=== PATIENT | female | born 1950 | race Caucasian/White ===

== ENCOUNTER 2016-02-17 08:18 | Inpatient (IN) | payer OTHER ==
[~2016-02-17] VITALS: Ht 157.5 cm; Wt 86.7 kg
[~2016-02-17 08:18] MED LIST: AMBIEN10 MG PO; BABY ASPIRIN81 M1 PO; CRESTOR40 MG PO; HYDROCHLOROTHIA25 MG PO; LEVOTHROID100 MCG PO; METOPROLOL TART25 MG PO; NEXIUM40 MG PO; PLAVIX75 MG PO; TOPROL XL50 MG PO
[2016-02-17 09:14] LABS: HEMATOCRIT 39.5 % (36.0-46.0); MCH 29.8 PG (29.0-34.0); MCHC 33.2 G/DL (30.0-36.0); PLATELET COUNT 280 K/uL (156-360); RBC DIS.WIDTH-CV 13.7 % (11.8-14.6); RBC DIS.WIDTH-SD 43.7 % (39-53); RED BLOOD COUNT 4.39 M/uL (3.80-5.20); WHITE BLOOD COUNT 9.6 K/uL (4.1-10.2)
[2016-02-17 09:26] LABS: CHLORIDE 105 mEq/L (99-109); POTASSIUM 4.8 mEq/L (3.7-5.4); SODIUM 136 mEq/L (136-147)
[2016-02-17 09:28] LABS: GLUCOSE 116 mg/dL (70-99)
[2016-02-17 09:29] LABS: ANION GAP 11 MEQ/L (2-14)
[2016-02-17 09:30] LABS: TOTAL BILIRUBIN 0.4 mg/dL (0.0-1.0)
[2016-02-17 09:32] LABS: ALKALINE PHOSPHATASE 69 IU/L (3-129); GFR ESTIMATE (CALCULATED) > 59 mL/min/
[2016-02-17 09:33] LABS: UREA NITROGEN (BUN) 19 mg/dL (9-23)
[2016-02-17 09:35] LABS: LIPASE 13 U/L (1.0-51.0)
[2016-02-17 11:02] LABS: ADD MIUA? NO; BILIRUBIN NEGATIVE; BLOOD NEGATIVE; COLOR YELLOW ((YELLOW)); GLUCOSE (STRIP) NEGATIVE; KETONES NEGATIVE; LEUKOCYTES NEGATIVE; NITRITE NEGATIVE; PH, URINE 5.5 (5-8); PROTEIN (STRIP) NEGATIVE; SPECIFIC GRAVITY 1.022 (1.000-1.030); UCUL ADDED? NO; UROBILINOGEN 0.2 MG/DL (0.2-1.0)
[2016-02-17] MEDS ORDERED: ASPIRIN325 MG PO (13:38)
[2016-02-17] MEDS ORDERED: PRAVACHOL40 MG PO (13:39)
[2016-02-17] MEDS ORDERED: LISINOPRIL-HCT1 EACH PO (13:39)
[2016-02-17 14:27] VITALS: BP 147/65
[2016-02-17 16:30] VITALS: BP 156/65
[2016-02-17 20:24] VITALS: BP 159/67
[2016-02-17 23:55] VITALS: BP 140/62
[2016-02-18 04:29] VITALS: BP 108/55
[2016-02-18 08:00] VITALS: BP 102/55
[2016-02-18 12:19] VITALS: BP 155/69
[2016-02-18 16:00] VITALS: BP 161/70
[2016-02-18 21:31] VITALS: BP 141/62
[2016-02-19] VITALS: BP 133/61
[2016-02-19 04:00] VITALS: BP 119/56
[2016-02-19 08:06] VITALS: BP 128/60
[2016-02-19 11:50] VITALS: BP 124/64
[2016-02-19 16:13] VITALS: BP 117/59
[2016-02-19 19:50] VITALS: BP 119/58
[2016-02-20] VITALS: BP 124/59
[2016-02-20 04:05] VITALS: BP 111/73
[2016-02-20 08:00] VITALS: BP 146/67
[2016-02-20] MEDS ORDERED: GABAPENTIN300 MG PO (09:10)
[2016-02-20] MEDS ORDERED: TYLENOL REGULA325 MG PO (09:10)
[2016-02-20] MEDS ORDERED: LIDOCAINE700 MG TD (09:10)
[2016-02-20] MEDS ORDERED: HYDROCODON-ACE1 EAC7 PO (09:11)
[2016-02-20 11:30] VITALS: BP 146/65
== END 2016-02-20 14:30 | disposition home or self-care (01) | DRG 552 ==
LOC: EME 08:18 → EDOF 11:58 → 5WEST 11:58 → 2EAST 02-19 19:21
PROVIDERS: Emergency Medicine
DX: M51.16 Intervertebral disc disorders with radiculopathy, lumbar region (principal); I11.0 Hypertensive heart disease with heart failure; I50.32 Chronic diastolic (congestive) heart failure; I25.10 Atherosclerotic heart disease of native coronary artery without angina pectoris; E78.5 Hyperlipidemia, unspecified; E03.9 Hypothyroidism, unspecified; E66.9 Obesity, unspecified; Z68.35 Body mass index [BMI] 35.0-35.9, adult; I25.2 Old myocardial infarction; Z95.1 Presence of aortocoronary bypass graft; Z79.82 Long term (current) use of aspirin; Z88.1 Allergy status to other antibiotic agents; Z88.5 Allergy status to narcotic agent
CPT/HCPCS: 72100; 74176; 80053; 81003; 83690; 85027; 97530 GP; 99281; 99285; G0008; G0378; G8978 GP CJ; G8979 GP CH; G8987 CK; G8987 GO CJ; J1170; J1644; J1885; J2405; J3360; J7030

== ENCOUNTER → 2017-03-20 | Outpatient (CLI) | payer OTHER ==
[~2017-03-20] MED LIST changes: +ASPIRIN325 MG PO; +GABAPENTIN300 MG PO; +HYDROCODON-ACE1 EAC7 PO; +LIDOCAINE700 MG TD; +LISINOPRIL-HCT1 EACH PO; +PRAVACHOL40 MG PO; +TYLENOL REGULA325 MG PO
== END | disposition home or self-care (01) ==
LOC: EKG 12:57
DX: I06.0 Rheumatic aortic stenosis (principal); I06.1 Rheumatic aortic insufficiency
CPT/HCPCS: 93306